=== PATIENT | male | born 1995 | race Caucasian/White ===

== ENCOUNTER 2017-02-22 11:58 | Emergency (ER) | payer SELFPAY ==
[2017-02-22 12:07] VITALS: BP 150/84; PULSE 85; TEMP 98.7; BMI 29.0
[2017-02-22] MEDS ORDERED: AZITHROMYCIN 1 GM PACKET PO ONE (13:17)
[2017-02-22] MEDS ORDERED: GENTAMICIN SO4 *PEDIATRIC* 20 MG/2 ML VIAL IM STA (13:24)
[2017-02-22 13:25] LABS: URINE APPEARANCE SLCLOUDY; URINE BILIRUBIN NEGATIVE (NEGATIVE); URINE BLOOD NEGATIVE (NEGATIVE); URINE COLOR LTYELLOW; URINE GLUCOSE (UA) NEGATIVE (NEGATIVE); URINE KETONE NEGATIVE (NEGATIVE); URINE NITRITE NEGATIVE (NEGATIVE); URINE PROTEIN NEGATIVE (NEGATIVE); URINE UROBILINOGEN NEGATIVE mg/dL (0.2-1.0)
[2017-02-22 13:30] LABS: URINE LEUK ESTERASE 3+ (NEGATIVE)
[2017-02-22 13:31] LABS: URINE MUCUS RARE; URINE RBC 3 /hpf (0-3); URINE WBC 119 /hpf (3-5)
[2017-02-22] MEDS ORDERED: GENTAMICIN SO4 80 MG/2 ML VIAL ONE (13:41)
--- NOTE | 2017-02-22 13:45 | PDOC ---
History of Present Illness - General Chief Complaint: Pain, Acute Stated Complaint: ABD PAIN Time Seen by Provider: 02/22/17 13:04 History Source: Patient Exam Limitations: No Limitations - History of Present Illness Travel History: No Initial Comments: 02/22/17 13:30 22 yr male no medical history presents with urinary burning and penile discharge yellow green for 3 days. Pt admits unprotected sexual inercourse. Last HIV test 6 months ago was negative, pt refused HIV test today. Pt denies fever or chills, has urinary burning. Timing/Duration: reports: constant, getting worse Past History - Past Medical History Allergies/Adverse Reactions: Allergies Allergy/AdvReac Type Severity Reaction Status Date / Time Penicillins Allergy Severe Swelling Verified 02/22/17 12:03 Home Medications: Ambulatory Orders NK [No Known Home Medication] 02/22/17 - Immunization History Immunization Up to Date: Yes - Suicide/Smoking/Psychosocial Hx Smoking Status: No Smoking History: Never smoked Have you smoked in the past 12 months: No Number of Cigarettes Smoked Daily: 0 Hx Alcohol Use: No Drug/Substance Use Hx: No Substance Use Type: None Abd/GI Specific PMHX - Complaint Specific PMHX Colitis: No Diverticulitis: No Gall Bladder Disease: No GERD: No Hepatitis: No Irritable Bowel Synd (IBS): No Pancreatitis: No GI Ulcer Disease: No Review of Systems - Review of Systems Able to Perform ROS?: Yes Is the patient limited [place] proficient: No Constitutional: No: Symptoms Reported HEENTM: No: Symptoms Reported Respiratory: No: Symptoms reported Cardiac (ROS): No: Symptoms Reported ABD/GI: No: Symptoms Reported : Yes: Symptoms Reported, Burning Musculoskeletal: No: Symptoms Reported Integumentary: No: Symptoms Reported Neurological: No: Symptoms reported *Physical Exam - Vital Signs Last Vital Signs Temp Pulse Resp BP Pulse Ox 98.7 F 85 20 150/84 100 02/22/17 12:04 02/22/17 12:04 02/22/17 12:04 02/22/17 12:04 02/22/17 12:04 - Physical Exam Comments: 02/22/17 13:32 General Appearance: Yes: Nourished HEENT: positive: EOMI, RICH Gastrointestinal/Abdominal: positive: Normal Bowel Sounds, Soft. negative: Tender Male Genitalia: positive: normal genitalia, discharge. negative: testicular tenderness, epididymus tender Musculoskeletal: positive: Normal Inspection Extremity: positive: Normal Capillary Refill, Normal Inspection, Normal Range of Motion Integumentary: positive: Normal Color, Dry, Warm Neurologic: positive: Fully Oriented, Alert, Normal Mood/Affect, Normal Response , Motor Strength 5/5 Medical Decision Making - Medical Decision Making 02/22/17 13:51 cc: penile discharge urinary burning no fever no chills no abd pain pt had unprotected sex will treat for GC/chlamydia pt has severe allergy to PCN will give gentamycin IM 240mg as indicated with 1gm Azithromycin pt refused to have blood drawn states he has to go to work pt referred to [facility] or pt can return to the ER for blood testing, pt aware he must stay in the ER for the HIV result. 02/22/17 13:53 *DC/Admit/Observation/Transfer Diagnosis at time of Disposition: Penile discharge - Discharge Dispostion Disposition: HOME Condition at time of disposition: Fair - Referrals Referrals: Rj Brown MD., MD [Staff Physician] - - Patient Instructions Additional Instructions: follow with the [facility] call them to find out the hours for the STD clinic to be tested for HIV, Hepatitis, and Syphilis Address: [address] [place] [address] Hours: Open today [id number] notify your sexual partners in the past 3-4 weeks they need to be tested and treated always use condoms you can also follow with the urologist if any worsening pain
--- NOTE | 2017-03-05 13:47 | PDOC ---
Patient Follow-up (Call Back) - Post ED Follow - Up Chief Complaint: Pain Condition at time of discharge: Fair Disposition at time of original discharge: HOME - Disposition Rx Needed: Yes (1gm azithromycin) Additional Instructions/Notes: spoke with pt as per [facility] who spoke with , pt needs one more gram of Azithromcyin. 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
== END 2017-02-22 14:08 | disposition home or self-care (01) ==
LOC: JERFT 11:58
DX: R36.9 Urethral discharge, unspecified (principal)
CPT/HCPCS: 36415; 81003; 81015; 87086; 87491; 87591; 99281-25

== ENCOUNTER 2017-03-01 11:19 | Emergency (ER) | payer OTHER ==
[2017-03-01 11:27] VITALS: BP 138/77; PULSE 66; TEMP 98.3; BMI 29.0
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
[2017-03-01] MEDS ORDERED: DIPHTH,PERTUSS(ACELL),TET 0.5 ML DISP.SYRIN IM ONE (12:26)
[2017-03-01] MEDS ORDERED: IBUPROFEN 600 MG TABLET (FP) PO ONE ×2 (12:49→12:51)
== END 2017-03-01 13:20 | disposition home or self-care (01) ==
LOC: JERFT 11:19
PROC: 3E0234Z Introduction of Serum, Toxoid and Vaccine into Muscle, Percutaneous Approach (ICD-10-PCS; principal; 2017-03-01)
DX: S00.81XA Abrasion of other part of head, initial encounter (principal); V43.52XA Car driver injured in collision with other type car in traffic accident, initial encounter; Y92.414 Local residential or business street as the place of occurrence of the external cause; Y93.89 Activity, other specified
CPT/HCPCS: 70150-TC; 90715; 99281-25

== ENCOUNTER 2018-12-25 20:00 | Emergency (ER) | payer OTHER | END 2018-12-26 00:40 | disposition home or self-care (01) | LOC: FER 20:00 ==

== ENCOUNTER 2024-02-03 14:49 | Emergency (ER) | payer OTHER ==
[2024-02-03 14:59] VITALS: BP 120/83; PULSE 63; RESP 18; TEMP 98.4; BMI 36.2
[2024-02-03 17:26] LABS: HIV INTERPRETATION NEGATIVE (NEGATIVE)
== END 2024-02-03 16:40 | disposition home or self-care (01) ==
LOC: JERFT 14:49
DX: J40 Bronchitis, not specified as acute or chronic (principal); R09.82 Postnasal drip; R05.9 Cough, unspecified; R09.81 Nasal congestion; Z20.822 Contact with and (suspected) exposure to COVID-19
CPT/HCPCS: 0241U-QW; 36415; 71046-TC-FY; 86803; 87389; 99284-25